=== PATIENT | male | born 1955 | race Caucasian/White ===

== ENCOUNTER 2021-06-16 05:08 | Day surgery (SDC) | payer OTHER ==
[2021-06-15 13:46] VITALS: BMI 25.7
[2021-06-16] MEDS ORDERED: KETAMINE HCL 200 MG/20 ML VIAL ONE (06:58)
[2021-06-16 13:35] VITALS: BP 130/76; PULSE 70; TEMP 98
[2021-06-16 15:05] LABS: BASO % 0.7 % (0-2.0); EOS % 0.9 % (0-4.5); HEMATOCRIT 45.2 % (35.4-49); LYMPH % 12.3 % (8-40); MCH 27.3 pg (25.7-33.7); MCHC 33.2 g/dl (32.0-35.9); MEAN CELL VOLUME 82.2 fl (80-96); MEAN PLT VOLUME 8.2 fl (7.5-11.1); MONO % 10.5 % (3.8-10.2); NEUT % 75.6 % (42.8-82.8); PLATELET COUNT 493 10^3/uL (134-434); RDW 17.1 % (11.9-15.9); WHITE BLOOD COUNT 7.5 K/mm3 (4.0-10.0)
[2021-06-16 15:13] LABS: INR 1.18 (0.83-1.09); PROTHROMBIN TIME (PATIENT) 14.2 SEC (9.7-13.0)
[2021-06-16 15:27] LABS: CALCIUM 9.3 mg/dL (8.5-10.1)
[2021-06-16 15:28] LABS: ALBUMIN 4.2 g/dl (3.4-5.0)
[2021-06-16 15:32] LABS: BILIRUBIN,TOTAL 0.6 mg/dL (0.2-1); TOT PROT 7.7 g/dl (6.4-8.2)
== END 2021-06-16 14:00 | disposition home or self-care (01) ==
LOC: JASU-ENDO 05:08
PROVIDERS: ATTEND Internal Medicine Gastroenterology
PROC: 0DBP8ZX Excision of Rectum, Via Natural or Artificial Opening Endoscopic, Diagnostic (ICD-10-PCS; principal; 2021-06-16 11:52)
DX: Z12.11 Encounter for screening for malignant neoplasm of colon (principal); Z80.0 Family history of malignant neoplasm of digestive organs; K62.1 Rectal polyp; K64.8 Other hemorrhoids; K57.30 Diverticulosis of large intestine without perforation or abscess without bleeding
CPT/HCPCS: 36415; 80053; 82378; 82728; 83540; 83550; 85025; 85610; 86140; 88305-TC

== ENCOUNTER 2021-09-25 04:59 | Day surgery (SDC) | payer OTHER ==
[2021-09-20 10:17] VITALS: BMI 25.7
[2021-09-25 10:18] VITALS: TEMP 97.7
[2021-09-25 11:02] VITALS: BP 133/75; PULSE 55
== END 2021-09-25 11:15 | disposition home or self-care (01) ==
LOC: JASU-ENDO 04:59
PROVIDERS: ATTEND Internal Medicine Gastroenterology
PROC: 0D5P8ZZ Destruction of Rectum, Via Natural or Artificial Opening Endoscopic (ICD-10-PCS; principal; 2021-09-25 10:00)
DX: Z12.11 Encounter for screening for malignant neoplasm of colon (principal); D12.8 Benign neoplasm of rectum; Z86.010 Personal history of colon polyps; Z80.0 Family history of malignant neoplasm of digestive organs
CPT/HCPCS: 88305-TC

== ENCOUNTER 2022-09-28 04:35 | Day surgery (SDC) | payer OTHER ==
[2022-09-28 12:06] VITALS: TEMP 98
[2022-09-28 12:57] VITALS: BP 126/75; PULSE 78; RESP 19
== END 2022-09-28 12:57 | disposition home or self-care (01) ==
LOC: JASU-ENDO 04:35
PROVIDERS: ATTEND Internal Medicine Gastroenterology
PROC: 0DBP8ZX Excision of Rectum, Via Natural or Artificial Opening Endoscopic, Diagnostic (ICD-10-PCS; principal; 2022-09-28 09:00)
DX: Z12.11 Encounter for screening for malignant neoplasm of colon (principal); K62.89 Other specified diseases of anus and rectum; K59.89 Other specified functional intestinal disorders; Z86.010 Personal history of colon polyps; Z80.0 Family history of malignant neoplasm of digestive organs
CPT/HCPCS: 88305-TC

== ENCOUNTER 2024-04-17 16:08 | Emergency (ER) | payer OTHER ==
[2024-04-17 17:04] VITALS: BP 125/87; PULSE 70; RESP 16; TEMP 97.9; BMI 26.5
== END 2024-04-17 17:08 | disposition home or self-care (01) ==
LOC: FER 16:08
DX: L76.22 Postprocedural hemorrhage of skin and subcutaneous tissue following other procedure (principal)
CPT/HCPCS: 99283-25